=== PATIENT | female | born 1965 | race Caucasian/White ===

== ENCOUNTER 2018-10-03 11:01 | Inpatient (IN) | payer OTHER, SELFPAY ==
[2018-10-03] VITALS (12 sets, daily range): BP systolic 96–121; BP diastolic 42–76; PULSE 59–95; RESP 16–18; TEMP 36.1–36.8; O2SAT 94–100; BMI 26.5
--- NOTE | 2018-10-03 11:22 | CT_ITS ---
STUDY: CT ABDOMEN AND PELVIS WITH CONTRAST REASON FOR EXAM: Female, 53 years old. Upper abdominal pain. RADIATION DOSAGE (If Supplied By Facility): CTDIvol = ( 12.34 ) mGy, DLP = ( 852.10 ) mGycm TECHNIQUE: Transaxial images were obtained from the dome of the diaphragm to the symphysis pubis with oral contrast. 100 ml of Isovue 300 contrast was administered. Sagittal and coronal images were reconstructed. Individualized dose optimization techniques were used for this CT. COMPARISON: None. FINDINGS: The visualized lung bases are unremarkable. The visualized portions of the heart are within normal limits. Normal liver. Normal gallbladder and extrahepatic biliary system. Normal spleen. Normal pancreas. Normal bilateral adrenal glands. Normal right kidney. Normal left kidney. Normal visualized stomach. Circumferential wall thickening of the terminal ileum. There is also evidence of small mesenteric lymph nodes in the right lower quadrant. There are multiple colonic diverticula consistent with diverticulosis. There is a tubular, thick-walled appendix (>7mm), consistent with acute appendicitis. The appendix is retrocecal. Normal abdominal aorta. Normal inferior vena cava. There is borderline retroperitoneal lymphadenopathy with enlarged nodes no greater than 10mm in the short axis diameter. Normal urinary bladder. Small lymph nodes are seen in the groins bilaterally. Normal abdominal wall. Levoscoliosis. Santos luis miguel fixation. Disc space narrowing and disc degeneration at the L5-S1 level. CT/Abdomen/Pelvis WITH Contrast IMPRESSION: Findings in keeping with acute retrocecal appendicitis. Diffuse circumferential wall thickening of the terminal ileum. Multiple lymph nodes are seen in the right lower quadrant in keeping with mesenteric adenitis. There is also evidence of diffuse thickening of the terminal ileum. Electronically Signed: Elier Bashir MD at 13:48 EST , Service support ,
--- NOTE | 2018-10-03 11:23 | ED.VISSUMM ---
- ER Visit Summary Date of Service: 10/03/18 Chief Complaint: Abdominal pain History of Present Illness: The patient is a 53 F Zentz with abdominal pain that began yesterday afternoon. Patient states pain began rather suddenly. Patient states the pain is gotten worse. Describes the pain as dull and aching. Patient states the pain is diffuse across her abdomen. Patient states the pain improved after taking a nap yesterday. Patient states the pain is worse with hitting bumps in the road on the way to the hospital. Patient denies any nausea or vomiting. Patient denies any diarrhea, melena, hematochezia. Patient denies any urinary complaints. Patient denies any fevers or chills. Physical Examination: Vital signs are stable. Patient is afebrile. Patient is in no acute distress. Oral mucosa is pink and moist. Neck is supple. Trachea is midline. There is no JVD noted. Heart was regular rate and rhythm. Lungs are clear and equal bilateral. Abdomen is soft. Bowel sounds are hypoactive. There is diffuse tenderness. There is rebound tenderness. There is no guarding noted. Skin is warm dry. Cranial nerves II through XII are intact. There are no focal motor or sensory deficits noted. The remaining physical exam is within normal limits. Test Results: CBC, comprehensive metabolic profile, lipase, and urinalysis were all within normal limits. CT scan of the abdomen and pelvis with oral and IV contrast shows evidence of appendicitis. Emergency Department Course and Treatment: Case was discussed with Dr. Gutiérrez. He will see the patient in preop. Patient last ate at 7 AM today. Patient understood and was agreeable with the plan. All questions were answered. Disposition: Admit to OR Impression: 1. Acute appendicitis This note was generated with [employer] dictation software. It may contain incorrect words, spelling, and punctuation that were not noted in review of the chart prior to signing ED Disposition - Plan for ED Patient: Disposition: Acute Care Hospital [facility] Diagnosis: Acute appendicitis
[2018-10-03 11:33] LABS: Absolute Lymphocyte Count 1.45 X10^3/ul (0.83-4.51); Absolute Neutrophil Count 7.9 X10^3/uL (2.0-7.7); Basophil# 0.02 X10^3/uL; Basophil% 0.2 % (0-1); Eosinophil# 0.06 X10^3/uL; Eosinophils% 0.6 % (0-5); Hematocrit 39.4 % (37-47); Hemoglobin 12.7 g/dl (12.0-15.0); Lymphocyte # 1.45 X10^3/ul (4.0); Lymphocyte % 14.5 % (19-41); Mean Corp Hgb Conc 32.2 g/gl (32-36); Mean Corpuscular Volume 92.9 fL (81-99); Mean Platelet Vol. 10.3 fl (6.2-12.0); Monocyte# 0.55 X10^3/uL; Monocyte% 5.5 % (0-10); Neutrophil # 7.88 X10^3/uL (2.7-7.7); Platelet Count 277 K/mm3 (150-450); RBC Distribution Width CV 13.8 % (11.6-14.6); RBC Distribution Width SD 46.8 fl (35.1-43.9); Red Blood Count 4.24 M/mm3 (4.2-5.4)
[2018-10-03 11:36] LABS: POSITIVE COUNT NO; POSITIVE DIFFERENTIAL NO; POSITIVE MORPHOLOGY NO
[2018-10-03] MEDS: Ondansetron 4 MG/2 ML Vial IV (11:36)
[2018-10-03] MEDS: Morphine 4 MG/ML Syringe IV (11:36)
[2018-10-03 11:44] LABS: ALB/GLOB Ratio 0.8 RATIO (0.9-2.4); AST(SGOT) 19 U/L (15-37); Alanine Aminotransfer ALT/SGPT 26 U/L (13-56); Albumin, Serum 3.7 g/dL (3.2-5.0); Alkaline Phosphatase 64 U/L (45-117); Anion Gap 8 (5-15); BUN 14 mg/dL (7-18); BUN/Creat Ratio 21.9 RATIO (10-20); Calcium,Total 8.9 mg/dL (8.5-10.1); Chloride 108 mmol/L (98-107); Creatinine, Serum 0.64 mg/dL (0.55-1.02); EST Glomerular Filtration Rate 103 mL/min (>60); Est Glom Filt Rate - Afr Amer 125 mL/min (>60); Estimated Creatinine Clearance 79.48 ml/min; Globulin 4.4 g/dL (2.2-4.2); Glucose 92 mg/dL (74-106); Lipase 259 U/L (73-393); Potassium 3.6 mmol/L (3.5-5.1); Protein, Total 8.1 g/dL (6.4-8.2); Sodium Level 140 mmol/L (136-145)
[2018-10-03 13:17] LABS: Bacteria 0 SEEN /hpf (None Seen); Mucous, Urine 0 SEEN /hpf (<or=2+); Red Blood Cells-Urine 0 SEEN /hpf (0-5)
[2018-10-03 13:18] LABS: Color, Urine Yellow (Yellow); Glucose, Dipstick Normal (Normal); Ketone-Dipstick Negative (Negative); Leukocyte Esterase-Dipstick Negative /ul (Negative); Nitrite-Dipstick Negative (Negative); Occult Blood-Urine Negative /ul (Negative); Protein-Dipstick Negative (Negative); Urine Bilirubin Dipstick Negative (Negative); Urine Clarity Clear (Clear); Urine Urobilinogen Normal (Normal)
[2018-10-03 13:27] LABS: Squamous Epithelial Cells - UA 0-5 SEEN /hpf (5-10); White Blood Cells 0-5 SEEN /hpf (0-5)
--- NOTE | 2018-10-03 15:23 | PCM.HP.STD ---
History of Present Illness Date of Admission: 10/03/18 Chief Complaint: abdominal pain The patient is a 53 year old F with a one day history of vague abdominal pain. The pain persisted. She presented to the ER. SHe had unremarkable lab studies but CT scan demonstrated a retrocecal appendicitis. She smokes but ke6ihuu other medical issues. She had a banana for breakfast. 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 Denies: Chills, Fever, Weight Change HEENT: Denies: Head Aches, Sinus Congestion, Sinus Drainage Cardiovascular: Denies: Chest Pain, Palpitations Respiratory: Denies: Cough, Shortness of breath at rest, Sputum production Gastrointestinal: Reports: Abdominal Pain. Denies: Nausea, Vomiting Genitourinary: Denies: Dysuria Musculoskeletal: Denies: Joint Pain, Joint Tenderness Skin: Denies: Rash, Wounds Neurological: Denies: Numbness, Tingling, Focal weakness Psychiatric: Denies: Anxiety, Depression, Homicidal Ideations, Suicidal Ideations Hematologic/ Lymphatic: Denies: Easy Bruising, Easy Bleeding VTE Information - Inpt Only VTE Present on Admission: No VTE Mechan Device Prophylaxis: SCD's Patient Problems: Active and Suspected Problems Acute appendicitis (Acute) - Physical Exam General: Alert, Oriented x3, Cooperative HEENT: Atraumatic, PERRLA, EOMI, Normocephalic Neck: Supple, No JVD, Negative Carotid Bruits Lungs: Clear to auscultation, Normal air movement Cardiovascular: Regular rate, No murmurs Abdomen: Bowel Sounds Present, Soft, Non Tender, Tender - diffusely without peritoneal signs Extremities: No edema, Capillary Refill Less than 3 Seconds Skin: No rashes, No breakdown Musculoskeletal: No Tenderness to Palpation of Joints or Extremities Neurological: Cranial nerves II-XII grossly intact Psych/Mental Status: Normal Affect, Appropriate Vital Signs Temp Pulse Resp BP Pulse Ox 97.9 F 73 16 103/76 97 10/03/18 14:47 10/03/18 14:47 10/03/18 14:47 10/03/18 14:47 10/03/18 14:47 Oxygen Delivery Method Room Air Weight: 65.771 kg Body Mass Index (BMI) 26.5 Laboratory Tests Past 24 Hrs 10/03/18 10/03/18 10/03/18 11:15 11:15 13:05 WBC 10.0 RBC 4.24 Hgb 12.7 Hct 39.4 MCV 92.9 MCH 30.0 MCHC 32.2 RDW 13.8 RDW Differential 46.8 H Plt Count 277 MPV 10.3 Immature Gran % (Auto) 0.200 Neut % (Auto) 79.0 H Lymph % (Auto) 14.5 L [place] % (Auto) 5.5 Eos % (Auto) 0.6 Baso % (Auto) 0.2 Absolute Neuts (auto) 7.9 H Absolute Lymphs (auto) 1.45 Total Counted Not Reportable Sodium 140 Potassium 3.6 Chloride 108 H Carbon Dioxide 24.0 Anion Gap 8 BUN 14 Creatinine 0.64 Estim Creat Clear Calc 79.48 Est GFR (MDRD) Af Amer 125 Est GFR (MDRD) Non-Af 103 BUN/Creatinine Ratio 21.9 H Glucose 92 Calcium 8.9 Total Bilirubin 0.50 AST 19 ALT 26 Alkaline Phosphatase 64 Total Protein 8.1 Albumin 3.7 Globulin 4.4 H Albumin/Globulin Ratio 0.8 L Lipase 259 Urine Color Yellow Urine Clarity Clear Urine pH 6.0 Ur Specific [place] 1.010 Urine Protein Negative Urine Glucose (UA) Normal Urine Ketones Negative Urine Occult Blood Negative Urine Nitrite Negative Urine Bilirubin Negative Urine Urobilinogen Normal Ur Leukocyte Esterase Negative Urine RBC 0 SEEN Urine WBC 0-5 SEEN Ur Squamous Epith Cells 0-5 SEEN Urine Bacteria 0 SEEN Urine Mucus 0 SEEN Assessment/Plan All Active Problems Acute appendicitis (Acute) retrocecal appendicitis I plan to perform a laparoscopic appendectomy. The patient understands the risks, benefits, possible cokmplicatiosn and alternatives and consents to the procedure. SHe will be given ZOsyn and SCDs
--- NOTE | 2018-10-03 15:27 | HP.PCM_ITS ---
History of Present Illness Date of Admission: 10/03/18 Chief Complaint: abdominal pain The patient is a 53 year old F with a one day history of vague abdominal pain. The pain persisted. She presented to the ER. SHe had unremarkable lab studies but CT scan demonstrated a retrocecal appendicitis. She smokes but em5arrx other medical issues. She had a banana for breakfast. 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 Denies: Chills, Fever, Weight Change HEENT: Denies: Head Aches, Sinus Congestion, Sinus Drainage Cardiovascular: Denies: Chest Pain, Palpitations Respiratory: Denies: Cough, Shortness of breath at rest, Sputum production Gastrointestinal: Reports: Abdominal Pain. Denies: Nausea, Vomiting Genitourinary: Denies: Dysuria Musculoskeletal: Denies: Joint Pain, Joint Tenderness Skin: Denies: Rash, Wounds Neurological: Denies: Numbness, Tingling, Focal weakness Psychiatric: Denies: Anxiety, Depression, Homicidal Ideations, Suicidal Ideations Hematologic/ Lymphatic: Denies: Easy Bruising, Easy Bleeding VTE Information - Inpt Only VTE Present on Admission: No VTE Mechan Device Prophylaxis: SCD's Patient Problems: Active and Suspected Problems Acute appendicitis (Acute) - Physical Exam General: Alert, Oriented x3, Cooperative HEENT: Atraumatic, PERRLA, EOMI, Normocephalic Neck: Supple, No JVD, Negative Carotid Bruits Lungs: Clear to auscultation, Normal air movement Cardiovascular: Regular rate, No murmurs Abdomen: Bowel Sounds Present, Soft, Non Tender, Tender - diffusely without peritoneal signs Extremities: No edema, Capillary Refill Less than 3 Seconds Skin: No rashes, No breakdown Musculoskeletal: No Tenderness to Palpation of Joints or Extremities Neurological: Cranial nerves II-XII grossly intact Psych/Mental Status: Normal Affect, Appropriate Vital Signs Temp Pulse Resp BP Pulse Ox 97.9 F 73 16 103/76 97 10/03/18 14:47 10/03/18 14:47 10/03/18 14:47 10/03/18 14:47 10/03/18 14:47 Oxygen Delivery Method Room Air Weight: 65.771 kg Body Mass Index (BMI) 26.5 Laboratory Tests Past 24 Hrs 10/03/18 10/03/18 10/03/18 11:15 11:15 13:05 WBC 10.0 RBC 4.24 Hgb 12.7 Hct 39.4 MCV 92.9 MCH 30.0 MCHC 32.2 RDW 13.8 RDW Differential 46.8 H Plt Count 277 MPV 10.3 Immature Gran % (Auto) 0.200 Neut % (Auto) 79.0 H Lymph % (Auto) 14.5 L [place] % (Auto) 5.5 Eos % (Auto) 0.6 Baso % (Auto) 0.2 Absolute Neuts (auto) 7.9 H Absolute Lymphs (auto) 1.45 Total Counted Not Reportable Sodium 140 Potassium 3.6 Chloride 108 H Carbon Dioxide 24.0 Anion Gap 8 BUN 14 Creatinine 0.64 Estim Creat Clear Calc 79.48 Est GFR (MDRD) Af Amer 125 Est GFR (MDRD) Non-Af 103 BUN/Creatinine Ratio 21.9 H Glucose 92 Calcium 8.9 Total Bilirubin 0.50 AST 19 ALT 26 Alkaline Phosphatase 64 Total Protein 8.1 Albumin 3.7 Globulin 4.4 H Albumin/Globulin Ratio 0.8 L Lipase 259 Urine Color Yellow Urine Clarity Clear Urine pH 6.0 Ur Specific [place] 1.010 Urine Protein Negative Urine Glucose (UA) Normal Urine Ketones Negative Urine Occult Blood Negative Urine Nitrite Negative Urine Bilirubin Negative Urine Urobilinogen Normal Ur Leukocyte Esterase Negative Urine RBC 0 SEEN Urine WBC 0-5 SEEN Ur Squamous Epith Cells 0-5 SEEN Urine Bacteria 0 SEEN Urine Mucus 0 SEEN Assessment/Plan All Active Problems Acute appendicitis (Acute) retrocecal appendicitis I plan to perform a laparoscopic appendectomy. The patient understands the risks, benefits, possible cokmplicatiosn and alternatives and consents to the procedure. SHe will be given ZOsyn and SCDs
[2018-10-03] MEDS: Bupivacaine Mpf 0.5% 30 ML VIAL (16:20)
--- NOTE | 2018-10-03 16:30 | APP_PTH ---
PATIENT: KATHARINE GONZALEZ LOC: MS3 U#:[id number] AGE/SX: 53/F ROOM: MS316 RE10/03/[address]: HUANG: 1965 BED: 1 DIS: 10/06/2018 SPEC #: [id number] RECD: 10/04/18 07:40 STATUS: SARA KATARZYNA #: [id number] SAIMA: 10/03/18 16:[address]: Macho Gutiérrez DEPT: SURGICAL PATHOLOGY RECD BY: Nicholas Kearney ENTERED: 10/04/18 08:48 SP TYPE: APPENDIX OT DR: No Primary Care Phys Tissues: Appendix, NOS Procedures: Surgery Specimen Level III HEADER OPERATION: Laparoscopic appendectomy PRE-OP DIAGNOSIS: Acute appendicitis TISSUE SUBMITTED: Appendix MICROSCOPIC DIAGNOSIS Appendix: Acute appendix and periappendicitis. RADHA:tino 10/05/18 MICROSCOPIC DESCRIPTION Slides are reviewed. GROSS DESCRIPTION Received is one container labeled with the patient's name and designated appendix. The specimen consists of an appendix in three pieces. The distal portion including tip measures 4 cm in length and up to 1 cm in diameter. The attached periappendiceal adipose tissue measures up to 1.5 cm in width. The proximal portions with staple margin measures 2 cm in length and 0.4 cm in diameter. The third piece consists predominantly of stapled tissue measuring 1.5 x 1 x 0.5 cm. The site of disruption may represent area of perforation. The serosal surface is covered with doyle, purulent exudate. The lumen contains fecal material. No obvious fecalith is identified. County Auditor sections are submitted in one cassette. / RADHA:tino 10/04/18 TC:2 CPT: 69706
--- NOTE | 2018-10-03 16:30 | PCM.OPRPT ---
Report of Operation Date of Procedure: 10/03/18 Pre-Operative Diagnosis: retrocecal appendicitis Post-Operative Diagnosis: advanced retrocecal appendicitis Surgery/Procedure Performed:: laparoscopic appendectomy kick boxer: None Type of Anesthesia:: General Anesthesiologist: Enoch Cowan - ASA2E Specimen's removed: appendix Estimated Blood Loss (mL): 5 Fluids Replaced: 800 Description of Procedure: The patient was brought to the operating suite. Sign in was performed verifying patient, site, procedure, position, and DVT prophylaxis with SCDs. Patient received 3.375 g Zosyn for presumed appendicitis. Following induction of general anesthetic. The patient?s abdomen was prepped and draped in the usual fashion. Timeout was performed verifying patient, site, position. Local anesthetic was injected below the umbilicus. Incision made and dissection carried down to the umbilical root fascia. 2 stay sutures were placed. Incision made in the fascia, the peritoneum entered under direct visualization. A 10 mm Col[place] trocar was inserted and secured with the stay sutures. Pneumoperitoneum to 15 mmHg was insufflated. 2 5mm ports were placed in the standard position. Visual inspection revealed retrocecal appendix that was dusky and near gangrenous but not yet ruptured. A window was made between the base the mesoappendix and the base of the appendix transected with the intestinal load Endo MASOOD stapler at the base of the cecum. The shortened retroperitoneal mesoappendix was transected with a harmonic scalpel. the appendix did rupture in the course of its dissection. A second firing of the intestinal load Endo MASOOD stapler was used the initial staple line appeared to be through more edematous area of the appendiceal base. The appendix was placed in an Endobag and removed through the umbilical port site. An 0 PDS [id number] suture was placed around the umbilical port site defect. Pneumoperitoneum was reestablished. The appendiceal area was checked for hemostasis. The area was irrigated with copious amounts of saline. 5mm ports were removed under direct visualization with no signs of bleeding. Pneumoperitoneum was released. The Colindres trocar was removed. The umbilical fascial suture was secured area did skin was closed with interrupted 4-0 Monocryl subcuticular sutures. Steri-Strips and bandages were applied. The patient was brought to recovery room in stable condition. - Admit VTE Documentation VTE Present on Admission: No VTE Mechan Device Prophylaxis: SCD's VTE Pharm Prophylaxis ordered?: No
--- NOTE | 2018-10-03 16:33 | OP.PCM_ITS ---
Report of Operation Date of Procedure: 10/03/18 Pre-Operative Diagnosis: retrocecal appendicitis Post-Operative Diagnosis: advanced retrocecal appendicitis Surgery/Procedure Performed:: laparoscopic appendectomy vault manager: None Type of Anesthesia:: General Anesthesiologist: Enoch Cowan - ASA2E Specimen's removed: appendix Estimated Blood Loss (mL): 5 Fluids Replaced: 800 Description of Procedure: The patient was brought to the operating suite. Sign in was performed verifying patient, site, procedure, position, and DVT prophylaxis with SCDs. Patient received 3.375 g Zosyn for presumed appendicitis. Following induction of general anesthetic. The patient?s abdomen was prepped and draped in the usual fashion. Timeout was performed verifying patient, site, position. Local anesthetic was injected below the umbilicus. Incision made and dissection carried down to the umbilical root fascia. 2 stay sutures were placed. Incision made in the fascia, the peritoneum entered under direct visualization. A 10 mm Colindres trocar was inserted and secured with the stay sutures. Pneumoperitoneum to 15 mmHg was insufflated. 2 5mm ports were placed in the standard position. Visual inspection revealed retrocecal appendix that was dusky and near gangrenous but not yet ruptured. A window was made between the base the mesoappendix and the base of the appendix transected with the intestinal load Endo MASOOD stapler at the base of the cecum. The shortened retroperitoneal mesoappendix was transected with a harmonic scalpel. the appendix did rupture in the course of its dissection. A second firing of the intestinal load Endo MASOOD stapler was used the initial staple line appeared to be through more edematous area of the appendiceal base. The appendix was placed in an Endobag and removed through the umbilical port site. An 0 PDS [id number] suture was placed around the umbilical port site defect. Pneumoperitoneum was reestablished. The appendiceal area was checked for hemostasis. The area was irrigated with copious amounts of saline. 5mm ports were removed under direct visualization with no signs of bleeding. Pneumoperitoneum was released. The Colindres trocar was removed. The umbilical fascial suture was secured area did skin was closed with interrupted 4-0 Monocryl subcuticular sutures. Steri-Strips and bandages were applied. The patient was brought to recovery room in stable condition. - Admit VTE Documentation VTE Present on Admission: No VTE Mechan Device Prophylaxis: SCD's VTE Pharm Prophylaxis ordered?: No
[2018-10-03] MEDS: Ketorolac 15 MG/ML Vial IV (18:04)
[2018-10-03] MEDS: Lactated Ringers 1,000 ML 100 ML IV ×2 (21:11→23:01)
[2018-10-03] MEDS: oxyCODONE 5 MG Tablet PO (23:01)
[2018-10-04] MEDS: oxyCODONE 5 MG Tablet PO ×2 (03:47→20:12)
[2018-10-04 04:00] VITALS: BP 98/56; PULSE 75; RESP 16; TEMP 36.9; O2SAT 96
[2018-10-04 06:22] LABS: Absolute Lymphocyte Count 0.79 X10^3/ul (0.83-4.51); Absolute Neutrophil Count 17.5 X10^3/uL (2.0-7.7); Hematocrit 34.6 % (37-47); Lymphocyte # 0.79 X10^3/ul (4.0); Lymphocyte % 4.1 % (19-41); Mean Corp Hgb Conc 31.8 g/gl (32-36); Mean Corpuscular Hgb 30.8 pg (27.0-32.0); Mean Corpuscular Volume 96.9 fL (81-99); Mean Platelet Vol. 10.8 fl (6.2-12.0); Monocyte# 0.87 X10^3/uL; Monocyte% 4.5 % (0-10); Neutrophil # 17.47 X10^3/uL (2.7-7.7); Neutrophil % 91.1 % (47-70); Platelet Count 235 K/mm3 (150-450); RBC Distribution Width CV 13.8 % (11.6-14.6); RBC Distribution Width SD 47.1 fl (35.1-43.9); Red Blood Count 3.57 M/mm3 (4.2-5.4); White Blood Count 19.2 K/mm3 (4.4-11.0)
[2018-10-04 06:23] LABS: POSITIVE COUNT NO; POSITIVE DIFFERENTIAL NO; POSITIVE MORPHOLOGY NO
[2018-10-04 10:00] VITALS: BP 95/57; PULSE 63; RESP 16; TEMP 36.9; O2SAT 93
[2018-10-04] MEDS: Ketorolac 15 MG/ML Vial IV ×2 (11:32→17:41)
--- NOTE | 2018-10-04 12:39 | PCM.PN.SRG ---
Patient Problems: Active and Suspected Problems Acute appendicitis (Acute) Subjective: complaint of continued abdominal tenderness mostly at incision sites but also mildly diffusely - Physical Exam General: Alert, Oriented x3, Cooperative Lungs: Clear to auscultation, Normal air movement Cardiovascular: Regular rate, No murmurs Abdomen: Soft, Hypoactive Bowel Sounds, Tender - at incisions also within right lateral flank area and mild diffusely tender Vital Signs Temp Pulse Resp BP Pulse Ox 98.4 F 63 16 98/56 L 93 10/04/18 10:00 10/04/18 10:00 10/04/18 10:00 10/04/18 04:00 10/04/18 10:00 Oxygen Flow Rate (L/min) 3 Oxygen Delivery Method Room Air Weight: 65.771 kg Body Mass Index (BMI) 26.5 Intake and Output for Last 24 Hours 10/02/18 10/03/18 10/04/18 23:59 23:59 23:59 Intake Total 1500 / 1500 3624 / 3624 Output Total 1400 / 1400 Balance 1500 / 1500 2224 / 2224 Laboratory Tests Past 24 Hrs 10/03/18 10/04/18 13:05 05:56 WBC 19.2 H RBC 3.57 L Hgb 11.0 L Hct 34.6 L MCV 96.9 MCH 30.8 MCHC 31.8 L RDW 13.8 RDW Differential 47.1 H Plt Count 235 MPV 10.8 Immature Gran % (Auto) 0.300 Neut % (Auto) 91.1 H Lymph % (Auto) 4.1 L [place] % (Auto) 4.5 Eos % (Auto) 0.0 Baso % (Auto) 0.0 Absolute Neuts (auto) 17.5 H Absolute Lymphs (auto) 0.79 L Total Counted Not Reportable Urine Color Yellow Urine Clarity Clear Urine pH 6.0 Ur Specific [place] 1.010 Urine Protein Negative Urine Glucose (UA) Normal Urine Ketones Negative Urine Occult Blood Negative Urine Nitrite Negative Urine Bilirubin Negative Urine Urobilinogen Normal Ur Leukocyte Esterase Negative Urine RBC 0 SEEN Urine WBC 0-5 SEEN Ur Squamous Epith Cells 0-5 SEEN Urine Bacteria 0 SEEN Urine Mucus 0 SEEN Medical Necessity - Tobacco Use Smoking Status: Current every day smoker Assessment/Plan All Active Problems Acute appendicitis (Acute) postoperative day #1 status post laparoscopic appendectomy for retrocecal appendicitis - gangrenous nearly perforated patient with elevated white blood cell count to 19,000 consistent with degree of inflammation and some rupture of the appendix with irrigation during appendectomy. Patient was maintained on Zosyn. patient listed on clear liquid diet with ability to advance, however patient's abdominal exam is somewhat hypoactive bowel sounds and no flatus maintain patient on clear liquids for now. Patient with history of tobacco use- encourage incentive spirometry and ambulation. SCDs for DVT prophylaxis.
[2018-10-04] MEDS: Lactated Ringers 1,000 ML 100 ML IV ×2 (14:50→22:00)
[2018-10-04 16:00] VITALS: BP 123/50; PULSE 64; RESP 18; TEMP 36.4; O2SAT 94
[2018-10-04 20:44] VITALS: BP 80/46; PULSE 59; RESP 18; TEMP 36.6; O2SAT 93
[2018-10-04] MEDS: Lactated Ringers 500 ML 999 ML IV (20:56)
[2018-10-04] MEDS: 0.9% NaCl Peripheral Flush Adult/Peds IV ×2 (21:08→22:31)
[2018-10-04 22:37] VITALS: BP 99/47; PULSE 61; RESP 16; TEMP 37; O2SAT 94
[2018-10-05] VITALS (7 sets, daily range): BP systolic 86–112; BP diastolic 39–75; PULSE 58–67; RESP 16–18; TEMP 36.3–37.1; O2SAT 92–96
[2018-10-05] MEDS: 0.9% NaCl Peripheral Flush Adult/Peds IV ×3 (00:51→21:14)
[2018-10-05] MEDS: Ketorolac 15 MG/ML Vial IV ×3 (03:07→17:02)
[2018-10-05 06:06] LABS: Absolute Lymphocyte Count 1.34 X10^3/ul (0.83-4.51); Absolute Neutrophil Count 8.6 X10^3/uL (2.0-7.7); Basophil# 0.01 X10^3/uL; Basophil% 0.1 % (0-1); Eosinophil# 0.04 X10^3/uL; Eosinophils% 0.4 % (0-5); Hematocrit 30.6 % (37-47); Hemoglobin 9.4 g/dl (12.0-15.0); Lymphocyte # 1.34 X10^3/ul (4.0); Lymphocyte % 12.5 % (19-41); Mean Corp Hgb Conc 30.7 g/gl (32-36); Mean Corpuscular Hgb 30.1 pg (27.0-32.0); Mean Corpuscular Volume 98.1 fL (81-99); Mean Platelet Vol. 10.6 fl (6.2-12.0); Monocyte# 0.63 X10^3/uL; Monocyte% 5.9 % (0-10); Neutrophil # 8.64 X10^3/uL (2.7-7.7); Neutrophil % 80.9 % (47-70); Platelet Count 185 K/mm3 (150-450); RBC Distribution Width SD 48.5 fl (35.1-43.9); Red Blood Count 3.12 M/mm3 (4.2-5.4); White Blood Count 10.7 K/mm3 (4.4-11.0)
[2018-10-05 06:27] LABS: POSITIVE COUNT NO; POSITIVE DIFFERENTIAL NO; POSITIVE MORPHOLOGY NO
[2018-10-05 06:30] LABS: BUN 12 mg/dL (7-18); Creatinine, Serum 0.69 mg/dL (0.55-1.02); Estimated Creatinine Clearance 73.72 ml/min; Glucose 104 mg/dL (74-106)
[2018-10-05 06:31] LABS: Anion Gap 8 (5-15); BUN/Creat Ratio 17.3 RATIO (10-20); Calcium,Total 8.1 mg/dL (8.5-10.1); Chloride 111 mmol/L (98-107); EST Glomerular Filtration Rate 94 mL/min (>60); Est Glom Filt Rate - Afr Amer 113 mL/min (>60); Potassium 3.5 mmol/L (3.5-5.1); Sodium Level 143 mmol/L (136-145)
[2018-10-05] MEDS: Lactated Ringers 1,000 ML 100 ML IV ×2 (09:08→16:59)
--- NOTE | 2018-10-05 10:30 | CASEMGMT ---
RN PALMER Face to Face with patient for initial transition planning/care coordination assessment. RN CM introduced self and role at [facility]. Patient lying in bed, alert and oriented. Patient willing to participate in assessment and is able to answer all questions appropriately. Care providers, pharmacy, and demographics verified. Patient wishes to discharge home, denies need for home health at this time. Patient states she has no further needs or concerns at this time. CM to follow for discharge planning needs that may arise. PCP: No PCP, List provided of in-network PCP Specialists: None [facility]erred [facility]acy: [facility] Insurance: [employer] Prescription Benefit: Yes Living Will/HPOA: None LNOK: Has Roommate Living Arrangements: Patient lives with roommate in house. Patient independent at home. Transportation: Self/roommate DME/HHC: Patient denies need for DME or HHC Disposition Plan: Patient to discharge home with family support and follow-up plans in place. Sis DUNN, RN, CM
--- NOTE | 2018-10-05 11:23 | PCM.PN.SRG ---
Patient Problems: Active and Suspected Problems Acute appendicitis (Acute) Subjective: improving pain, passed flatus this morning - Physical Exam General: Alert, Oriented x3, Cooperative Lungs: Clear to auscultation, Normal air movement Cardiovascular: Regular rate, No murmurs Abdomen: Bowel Sounds Present, Soft, Tender - at incisions and right flank - improved Vital Signs Temp Pulse Resp BP Pulse Ox 98.8 F 60 16 96/75 92 10/05/18 09:37 10/05/18 09:37 10/05/18 09:37 10/05/18 09:37 10/05/18 09:37 Oxygen Flow Rate (L/min) 2 Oxygen Delivery Method Room Air Weight: 65.771 kg Body Mass Index (BMI) 26.5 Intake and Output for Last 24 Hours 10/03/18 10/04/18 10/05/18 23:59 23:59 23:59 Intake Total 1500 / 1500 5961.4 / 5961.4 1021.2 / 1021.2 Output Total 2800 / 2800 900 / 900 Balance 1500 / 1500 3161.4 / 3161.4 121.2 / 121.2 Laboratory Tests Past 24 Hrs 10/05/18 10/05/18 05:54 05:54 WBC 10.7 RBC 3.12 L Hgb 9.4 L Hct 30.6 L MCV 98.1 MCH 30.1 MCHC 30.7 L RDW 14.0 RDW Differential 48.5 H Plt Count 185 MPV 10.6 Immature Gran % (Auto) 0.200 Neut % (Auto) 80.9 H Lymph % (Auto) 12.5 L [place] % (Auto) 5.9 Eos % (Auto) 0.4 Baso % (Auto) 0.1 Absolute Neuts (auto) 8.6 H Absolute Lymphs (auto) 1.34 Total Counted Not Reportable Sodium 143 Potassium 3.5 Chloride 111 H Carbon Dioxide 24.0 Anion Gap 8 BUN 12 Creatinine 0.69 Estim Creat Clear Calc 73.72 Est GFR (MDRD) Af Amer 113 Est GFR (MDRD) Non-Af 94 BUN/Creatinine Ratio 17.3 Glucose 104 Calcium 8.1 L Medical Necessity - Tobacco Use Smoking Status: Current every day smoker Assessment/Plan All Active Problems Acute appendicitis (Acute) postoperative day #2 status post laparoscopic appendectomy for retrocecal appendicitis - gangrenous nearly perforated patient with elevated white blood cell count normalizing. Exam still consistent with degree of inflammation and some rupture of the appendix with irrigation during appendectomy. Patient was maintained on Zosyn. patient with ability to advance. Patient with history of tobacco use- encourage incentive spirometry and ambulation. SCDs for DVT prophylaxis.
[2018-10-05] MEDS: oxyCODONE 5 MG Tablet PO (12:47)
[2018-10-06 03:36] VITALS: BP 117/55; PULSE 67; RESP 16; TEMP 37.2; O2SAT 94
[2018-10-06] MEDS: oxyCODONE 5 MG Tablet PO (03:49)
[2018-10-06] MEDS: Lactated Ringers 1,000 ML 100 ML IV (05:15)
--- NOTE | 2018-10-06 07:10 | DCINST_ITS ---
Discharge Diet: Light diet - advance as tolerated Discharge Activity: May Not Drive - for 3-5 days or while taking narcotic pain meds. May shower in (days): 1 Suture Line Care: Avoid Pulling/Pushing, Avoid Pinching/Bending Additional Dressing/Incision Instructions:: Keep dressing clean and dry. Change or remove dressing in 2 days. Leave steri strips for 1 week. May protect with a gauze bandaid. Medications to take at Discharge Amoxicillin/Potassium Clav [Augmentin 875-125 Tablet] 1 ea PO BID 5 Days #10 tab 10/06/18 Oxycodone [Oxyir] 5 - 10 mg PO Q4H PRN PRN 7 Days #12 tab 10/06/18 Allergies/Adverse Reactions: Allergies No Known Allergies Allergy (Verified 10/03/18 11:01) The following prescriptions were given: Oxycodone [Oxyir] 5 - 10 mg PO Q4H PRN PRN 7 Days #12 tab PRN Reason: Severe Pain (-06/01) Amoxicillin/Potassium Clav [Augmentin 875-125 Tablet] 1 ea PO BID 5 Days #10 tab Primary Care Physician: Care Physician,No Primary [Primary Care Provider] - Test Results: Test results from this visit will be discussed in further detail at your follow- up appointment, if applicable. Please Follow Up With: Macho Gutiérrez MD - [phone] When: Call to make a follow up appointment in 1 week.
[2018-10-06 08:15] VITALS: BP 115/48; PULSE 60; RESP 18; TEMP 36.8; O2SAT 95
--- NOTE | 2018-10-06 17:50 | DS.PCM_ITS ---
Discharge Date and Diagnosis Date of Admission: 10/03/18 Date of Discharge: 10/06/18 - Primary Discharge Diagnosis retrocecal gangrenous appendicitis Hospital Course and Treatment Operations: appendectomy Summary of Care Provided: The patient is a 53 year old F with a retrocecal appendicitis based on CT scan. The patient only noted one day of abdominal pain but at surgery patient was found to have significant edema and nearly gangrenous appendicitis. She underwent laparoscopic appendectomy that was uneventful. Postoperative day 1 the patient's white blood cell count raised in 19,000 and she had a mild postope rative ileus career bowel function postoperatively to normalization of her white blood cell count. The patient was maintained on IV antibiotics and while maintaining afebrile, blood cell count she is ready to be discharged on postoperative day 3. - Physical Exam General: Alert Lungs: Clear to auscultation, Normal air movement Cardiovascular: Regular rate, No murmurs Abdomen: Bowel Sounds Present, Soft, Tender - head incisions Vital Signs Temp Pulse Resp BP Pulse Ox 98.3 F 60 18 115/48 L 95 10/06/18 08:15 10/06/18 08:15 10/06/18 08:15 10/06/18 08:15 10/06/18 08:15 Oxygen Flow Rate (L/min) 2 Oxygen Delivery Method Room Air Weight: 65.771 kg Body Mass Index (BMI) 26.5 Intake and Output for Last 24 Hours 10/04/18 10/05/18 10/06/18 23:59 23:59 23:59 Intake Total 5961.4 / 5961.4 1021.2 / 1021.2 2049 Output Total 2800 / 2800 900 / 900 Balance 3161.4 / 3161.4 121.2 / 121.2 2049 Discharge Diet: Light diet - advance as tolerated Discharge Activity: May Not Drive - for 3-5 days or while taking narcotic pain meds. May shower in (days): 1 Suture Line Care: Avoid Pulling/Pushing, Avoid Pinching/Bending Additional Dressing/Incision Instructions:: Keep dressing clean and dry. Change or remove dressing in 2 days. Leave steri strips for 1 week. May protect with a gauze bandaid. Home Medications: Medications to take at Discharge Amoxicillin/Potassium Clav [Augmentin 875-125 Tablet] 1 ea PO BID 5 Days #10 tab 02/14/19 Oxycodone [Oxyir] 5 - 10 mg PO Q4H PRN PRN 7 Days #12 tab 10/06/18 Following Prescrptions Were Given to Patient: Oxycodone [Oxyir] 5 - 10 mg PO Q4H PRN PRN 7 Days #12 tab PRN Reason: Severe Pain (-06/01) Amoxicillin/Potassium Clav [Augmentin 875-125 Tablet] 1 ea PO BID 5 Days #10 tab Primary Care Physician: Care Physician,No Primary [Primary Care Provider] - Please Follow Up With: Macho Gutiérrez MD - [phone] When: Call to make a follow up appointment in 1 week. Medical Necessity - Tobacco Use Smoking Status: Current every day smoker Meaningful Use Info Meaningful Use Diagnoses (Choose all that apply): None applicable
== END 2018-10-06 09:24 | disposition home or self-care (01) | DRG 342 ==
LOC: ED 14:40 → SDC 14:46 → MS3 10-04 13:59
PROVIDERS: Admitting Provider Surgery; Emergency Provider Emergency Medicine
PROC: 0DTJ4ZZ Resection of Appendix, Percutaneous Endoscopic Approach (ICD-10-PCS; CPT 44970; principal; 2018-10-03 16:10)
DX: K35.891 Other acute appendicitis without perforation, with gangrene (principal); K56.7 Ileus, unspecified; F17.200 Nicotine dependence, unspecified, uncomplicated
CPT/HCPCS: 36415; 74177; 80048; 80053; 81001; 83690; 85025; 88304; 99282; J7030; J7120; Q9967; A4216; J2405

== ENCOUNTER 2019-09-03 19:11 | Emergency (ER) | payer OTHER, SELFPAY ==
[2018-10-03 17:52] VITALS: BMI 26.5
[2019-09-03 19:13] VITALS: BP 109/76; PULSE 71; RESP 14; TEMP 36.8; O2SAT 98; BMI 27.7
--- NOTE | 2019-09-03 19:31 | ED.VISSUMM ---
- ER Visit Summary Date of Service: 09/03/19 Chief Complaint: [Fall with injury to head] History of Present Illness: The patient is a 54 F [presents to the emergency department with a fall that occurred around 2 PM today. Patient states that she was walking on the sidewalk and her foot kind of shuffled and she fell landing on her right side and right knee and then her head struck a bike rack that was on the sidewalk. No loss of consciousness. She has had no vomiting. She denies any headache. Patient states she feels fine but she was at work and they asked her to come in and get evaluated. Patient did sustain an abrasion to her right knee but is walking without difficulty. Patient denies any neck pain. She denies chest pain or abdomen pain. She is not on any blood thinners.] Physical Examination: [HEENT-PERRLA, EOMI. Cranial nerves II through XII grossly intact. TMs clear. Mucous membranes moist. No adenopathy. Patient has a small area of soft tissue swelling/hematoma to the posterior occiput on the right side measuring 2.5 cm in diameter. No bony depressions. She has no C-spine tenderness on palpation. She has normal active range of motion is painless in the neck. Cardiovascular-regular rate and rhythm without murmur or ectopy Lungs-clear to auscultation, chest wall stable without crepitus or subcu emphysema Abdomen-normoactive bowel sounds, soft, nontender, no rebound or rigidity, no peritoneal signs. Extremities-intact ?4, normal range of motion, normal pulses. Right knee-patient has some superficial abrasions noted with some faint ecchymosis noted. She has no real tenderness over the patella or the knee joint. She has normal range of motion. She is very mentally stable.] Test Results: [None indicated] Emergency Department Course and Treatment: [She was given a tetanus booster] Treatment Plan: [Patient to follow-up with corporate care in 3 to 5 days.] Disposition: [Discharged home in stable condition] Impression: [Mechanical fall Closed head injury Right knee abrasion] This note was generated with [employer] dictation software. It may contain incorrect words, spelling, and punctuation that were not noted in review of the chart prior to signing ED Disposition - Plan for ED Patient: Referrals: Randal Salinas [Primary Care Provider] -
--- NOTE | 2019-09-03 19:33 | DCINST.ED_ITS ---
ED Disposition - Plan for ED Patient: Instructions: FALL, Mechanical, Skin Avulsion, HEAD INJURY, No Wake-Up (Adult) Referrals: Randal Salinas [Primary Care Provider] - Corporate,[facility] [GROUP OF PHYSICIANS] - 3-5 Days
--- NOTE | 2019-09-03 19:33 | ED.DEP ---
ED Disposition - Plan for ED Patient: Instructions: FALL, Mechanical, Skin Avulsion, HEAD INJURY, No Wake-Up (Adult) Referrals: Randal Salinas [Primary Care Provider] - [facility] [GROUP OF PHYSICIANS] - 3-5 Days
[2019-09-03] MEDS: Diphth,Pertuss(Acell),Tet Vac 0.5 ML Vial IM (19:47)
== END 2019-09-03 20:46 | disposition home or self-care (01) ==
PROVIDERS: Emergency Provider Emergency Medicine; Family Provider Family Medicine
DX: S00.03XA Contusion of scalp, initial encounter (principal); S80.211A Abrasion, right knee, initial encounter; S80.01XA Contusion of right knee, initial encounter; Z23 Encounter for immunization; W19.XXXA Unspecified fall, initial encounter; Y93.01 Activity, walking, marching and hiking; Y92.480 Sidewalk as the place of occurrence of the external cause; E78.00 Pure hypercholesterolemia, unspecified; E03.9 Hypothyroidism, unspecified; Z79.899 Other long term (current) drug therapy; Z72.0 Tobacco use
CPT/HCPCS: 90471; 90715; 99282

== ENCOUNTER → 2021-08-04 | Outpatient (CLI) | payer OTHER, SELFPAY | END | disposition home or self-care (01) | LOC: IMMUN 08-18 16:11 | PROVIDERS: Visit Provider Family Medicine | DX: Z23 Encounter for immunization (principal) ==